=== PATIENT | male | born 1990 | race African-American/Black ===

== ENCOUNTER 2017-01-15 15:46 | Emergency (ER) | payer SELFPAY ==
[~2017-01-15] VITALS: Ht 165.1 cm; Wt 70.0 kg
[2017-01-15 15:48] VITALS: BP 125/61; PULSE 52; RESP 16; TEMP 98.9; O2SAT 98
--- NOTE | 2017-01-15 16:03 | PD ---
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 PAIN 08/10 VS REVIEWED AWAITING BED PLACEMENT Data Data Last Documented VS Vital Signs Date Time Temp Pulse Resp B/P Pulse Ox O2 Delivery O2 Flow Rate FiO2 01/15/17 15:48 98.9 52 16 125/61 98 Room Air MDM Supervised Visit with ENRIQUE: No Scripts No Active Prescriptions or Reported Meds Condition: Stable Aman Steve Jan 15, 2017 16:03
--- NOTE | 2017-01-15 16:09 | PD ---
HPI Chief Complaint: Injury Time Seen by Provider: 16:09 Travel History International Travel<30 days: No Contact w/Intl Traveler<30days: No Traveled to known affect area: No History of Present Illness HPI 26-year-old Afro-[place] male presents emergency Department with a trip and fall with injury to the right knee earlier today. Patient has history of ACL repair to the right knee. He states he was walking on some loose bricks in the proximal caused him to fall twisting his knee causing sudden onset pain. Patient is concerned the knee may be out of joint. He is having difficulty extending it completely. He denies numbness, tingling but has weakness secondary to pain. Pain is an 8 out of 10. Patient had ACL repair in 2013. Surgery was not done by a local orthopedic. He has no known drug allergies. [facility] Social History Alcohol Use: Yes Tobacco Use: No Substance Use: No Allergies-Medications (Allergen,Severity, Reaction): Coded Allergies: No Known Allergies (Unverified , 01/15/17) Reported Meds & Prescriptions Reported Meds & Active Scripts Active No Active Prescriptions or Reported Medications Review of Systems Except as stated in HPI: all other systems reviewed are Neg General / Constitutional: No: Fever Eyes: No: Visual changes HENT: No: Headaches Cardiovascular: No: Chest Pain or Discomfort Respiratory: No: Shortness of Breath Gastrointestinal: No: Abdominal Pain Genitourinary: No: Dysuria Musculoskeletal: Positive: Arthralgias, Limited ROM, Pain (see history present illness.) Skin: No Rash Neurologic: No: Weakness Psychiatric: No: Depression Endocrine: No: Polydipsia Hematologic/Lymphatic: No: Easy Bruising Physical Exam Narrative GENERAL: Patient appears in mild to moderate distress. SKIN: Warm and dry. Normal color. Normal turgor. HEAD: Atraumatic. Normocephalic. EYES: Pupils equal and round. No scleral icterus. No injection or drainage. ENT: No nasal bleeding or discharge. Mucous membranes pink and moist. Pharynx is clear. Airway is patent. NECK: Trachea midline. Supple and nontender. CARDIOVASCULAR: Regular rate and rhythm. RESPIRATORY: No accessory muscle use. Clear to auscultation. Breath sounds equal bilaterally. MUSCULOSKELETAL: Extremities without clubbing, cyanosis, or edema. No obvious deformities. Right knee appears normal with normal alignment, and no effusion. I am able to extend the knee almost completely straight with discomfort. No obvious laxity is noted. There is no crepitus. Further examination limited by pain. NEUROLOGICAL: Awake and alert. No obvious cranial nerve deficits. Motor grossly within normal limits. Five out of 5 muscle strength in the arms and legs. Normal speech. PSYCHIATRIC: Appropriate mood and affect; insight and judgment normal. Data Data Last Documented VS Vital Signs Date Time Temp Pulse Resp B/P Pulse Ox O2 Delivery O2 Flow Rate FiO2 01/15/17 15:48 98.9 52 16 125/61 98 Room Air Orders Knee, Complete (4vws) (01/15/17 16:03) Ice/Cold Pack (01/15/17 16:03) Ketorolac Inj (Toradol Inj) (01/15/17 16:45) Splint Or Brace Apply/Monitor (01/15/17 16:34) Crutches (01/15/17 16:34) MDM Medical Decision Making Medical Screen Exam Complete: Yes Emergency Medical Condition: Yes Differential Diagnosis Right knee sprain. Right knee pain. History of ACL repair. Narrative Course X-ray of the right knee is obtained. X-ray shows no acute process per radiologist. Patient is placed in a knee immobilizer and crutches. Patient is given shot of Toradol 60 mg IM. Patient will be continued on ibuprofen 800 mg 3 times daily with food. Patient is to use immobilizer and crutches until cleared by orthopedist. Patient called Dr. Gomez office for orthopedic follow-up. Patient should not participate sports or other activities that would worsen his condition. Diagnosis Primary Impression: Sprain of right knee Qualified Code: S83.91XA - Sprain of right knee, unspecified ligament, initial encounter Additional Impression: History of tear of ACL (anterior cruciate ligament) Referrals: Lawson Gomez MD Patient Instructions: Crutch Instructions (ED), General Instructions, Knee Immobilizer (ED) Departure Forms: School Release Please excuse from school until (free text option): No sports or extended standing walking until cleared by orthopedist Additional Instructions: X-ray shows no acute process per radiologist. Patient is placed in a knee immobilizer and crutches. Patient is given shot of Toradol 60 mg IM. Patient will be continued on ibuprofen 800 mg 3 times daily with food. Patient is to use immobilizer and crutches until cleared by orthopedist. Patient called Dr. Gomez office for orthopedic follow-up. Patient should not participate sports or other activities that would worsen his condition. Med/Other Pt SpecificInfo: Prescription(s) given Scripts No Active Prescriptions or Reported Meds Disposition: 01 DISCHARGE HOME Condition: Stable Tom Hester Jan 15, 2017 16:09
--- NOTE | 2017-01-15 16:35 | PD ---
HPI Chief Complaint: Injury Time Seen by Provider: 16:35 Travel History International Travel<30 days: No Contact w/Intl Traveler<30days: No Traveled to known affect area: No Allergies-Medications (Allergen,Severity, Reaction): Coded Allergies: No Known Allergies (Unverified , 01/15/17) Reported Meds & Prescriptions Reported Meds & Active Scripts Active Ibuprofen 800 Mg Tab 800 Mg PO Q8H PRN Data Data Last Documented VS Vital Signs Date Time Temp Pulse Resp B/P Pulse Ox O2 Delivery O2 Flow Rate FiO2 01/15/17 15:48 98.9 52 16 125/61 98 Room Air Orders Knee, Complete (4vws) (01/15/17 16:03) Ice/Cold Pack (01/15/17 16:03) Ketorolac Inj (Toradol Inj) (01/15/17 16:45) Splint Or Brace Apply/Monitor (01/15/17 16:34) Crutches (01/15/17 16:34) Immobilizer Knee 20 Inch (01/15/17 ) MDM Diagnosis Primary Impression: Sprain of right knee Qualified Code: S83.91XA - Sprain of right knee, unspecified ligament, initial encounter Scripts Ibuprofen 800 Mg Bti307 Mg PO Q8H PRN (Pain/Inflammation) #30 TAB Prov:Tejas Gordon MD 01/15/17 Condition: Stable Tom Hester Jan 15, 2017 16:35
--- NOTE | 2017-01-15 16:38 | RADRPT ---
EXAM DATE/TIME: 01/15/2017 16:14 [facility] COMPARISON: No previous studies available for comparison. INDICATIONS : Right knee pain. patient stepped wrong on a loose brick walkway. Possible patella dislocation. MEDICAL HISTORY : None. SURGICAL HISTORY : Arthroscopy right knee. ENCOUNTER: Initial ACUITY: 1 day PAIN SCORE: 10/10 LOCATION: Right knee. FINDINGS: The patient is status post ACL repair with tunnels seen. No fracture is seen. The knee joint is christina lly aligned. No effusion is seen. CONCLUSION: No acute abnormality seen. Jack Sanchez MD on January 15, 2017 at 16:36 Board Certified Radiologist. This report was verified electronically.
[2017-01-15] MEDS ORDERED: KETOROLAC TROMETHAMINE 60 MG/2 ML (IM) VIAL IM ONE (16:45)
[2017-01-15] MEDS ORDERED: IBUP800T23 PO (16:54)
== END 2017-01-15 17:20 | disposition home or self-care (01) ==
LOC: NEPK 15:46
DX: S83.91XA Sprain of unspecified site of right knee, initial encounter (principal); W01.0XXA Fall on same level from slipping, tripping and stumbling without subsequent striking against object, initial encounter
CPT/HCPCS: 73564; 96372; 99284; E0113; J1885; L1830

== ENCOUNTER 2017-03-05 00:38 | Emergency (ER) | payer SELFPAY ==
[~2017-03-05 00:38] MED LIST: IBUP800T23 PO
[2017-03-05 00:41] VITALS: BP 128/75; PULSE 56; RESP 16; TEMP 97.8; O2SAT 99
[2017-03-05] MEDS ORDERED: DICL75TA PO (02:55)
--- NOTE | 2017-03-05 02:58 | PD ---
HPI Chief Complaint: Injury Time Seen by Provider: 02:02 Travel History International Travel<30 days: No Contact w/Intl Traveler<30days: No Traveled to known affect area: No History of Present Illness HPI 26-year-old black male with a history of an ACL reconstruction presents to the ER by POV for evaluation of right knee pain after injury this evening. He states that he was performing step when his right leg slipped on the wet pavement. He states that his right leg gave out and he had a pivot shift. He is complaining of pain in the knee. He declines an x-ray today. He states that he had x-ray of his right knee back in January and does not want one now. Pain is mild to moderate. Worse weightbearing. No alleviating factor. PFSH Past Medical History Narrative Medical Right ACL tear Tetanus Vaccination: < 5 Years Past Surgical History Narrative Surgical Right ACL reconstruction Other Surgery: Yes (R ACL) Social History Alcohol Use: Yes (OCC.) Tobacco Use: No Substance Use: Yes (MARIJUANA ) Allergies-Medications (Allergen,Severity, Reaction): Coded Allergies: No Known Allergies (Unverified , 03/05/17) Reported Meds & Prescriptions Reported Meds & Active Scripts Active Diclofenac Sodium DR (Diclofenac Sodium) 75 Mg Tabdr 75 Mg PO BID Review of Systems Except as stated in HPI: all other systems reviewed are Neg Physical Exam Narrative GENERAL: This is a well-nourished, well-developed patient, in no apparent distress. SKIN: No rashes, ecchymoses or lesions. Warm and dry. HEAD: Atraumatic. Normocephalic. EYES: PERRL, EOMI, no discharge or injection. No scleral icterus. EARS: Clear NOSE: Nasal turbinates appear normal. THROAT: Mucosa pink and moist. Airway patent. NECK: Trachea midline. supple, moves head freely. LUNGS: Clear to auscultation. CV: Regular in rhythm. ABDOMEN: Soft nontender. EXT: No clubbing cyanosis or edema. Examination the right lower extremity reveals mild anterior draw with a firm endpoint. No mediolateral collateral ligament instability negative posterior draw. No joint effusion. No pain in the hip, ankle or foot. He has intact gross sensation with good distal pulses. He has an antalgic gait. Data Data Last Documented VS Vital Signs Date Time Temp Pulse Resp B/P (MAP) Pulse Ox O2 Delivery O2 Flow Rate FiO2 03/05/17 00:41 97.8 56 16 128/75 (92) 99 Orders Orders Ice/Cold Pack (03/05/17 02:01) Splint Or Brace Apply/Monitor (03/05/17 02:52) Crutches (03/05/17 02:52) Acetamin-Hydrocod 325-5 Mg (Thrall 5-325 (03/05/17 03:00) Naproxen (Naprosyn) (03/05/17 03:00) MDM Medical Decision Making Medical Screen Exam Complete: Yes Emergency Medical Condition: Yes Medical Record Reviewed: Yes Differential Diagnosis MDM: High Differential diagnoses: Fracture, sprain, strain, dislocation, contusion, neurovascular injury Narrative Course Patient has declined x-ray at this time. Patient's given Joseph wrap and crutches. Lortab 5 mg and Naprosyn 500 mg by mouth. This is right knee sprain Diagnosis Primary Impression: Sprain of right knee Qualified Codes: S83.91XA - Sprain of unspecified site of right knee, initial encounter Patient Instructions: General Instructions Additional Instructions: Rest. Elevation. Ice packs for the next 3 days. Joseph wrap and crutches. No weight-bearing and then progress to weight-bearing as tolerated. Medications as directed Follow-up with an orthopedist or your doctor in one week. Return to the ER if any problems Med/Other Pt SpecificInfo: Prescription(s) given Scripts Diclofenac Sodium DR (Diclofenac Sodium DR) 75 Mg Tabdr 75 MG PO BID, #30 TAB 0 Refills Prov: Judy Irwin MD 03/05/17 Disposition: 01 DISCHARGE HOME Condition: Stable Aman Steve Mar 05, 2017 02:58
[2017-03-05] MEDS ORDERED: ACETAMINOPHEN/HYDROcodone 325 MG/5 MG TAB PO ONE (03:00)
[2017-03-05] MEDS ORDERED: NAPROXEN 500 MG TAB PO ONE (03:00)
== END 2017-03-05 03:30 | disposition home or self-care (01) ==
LOC: NEPB 00:38
DX: S83.91XA Sprain of unspecified site of right knee, initial encounter (principal); W01.0XXA Fall on same level from slipping, tripping and stumbling without subsequent striking against object, initial encounter; Y93.89 Activity, other specified
CPT/HCPCS: 99283; E0113